=== PATIENT | male | born 1985 | race Caucasian/White ===

== ENCOUNTER 2018-01-25 16:35 | Emergency (ER) | payer OTHER ==
[~2018-01-25] VITALS: Ht 177.8 cm; Wt 100.0 kg
[~2018-01-25 16:35] MED LIST: ANTI INFLAMMATORY; MOTR200T47
[2018-01-25 16:36] VITALS: BP 138/73; PULSE 78; RESP 18; TEMP 98.2; O2SAT 100
--- NOTE | 2018-01-25 16:44 | PD ---
HPI Chief Complaint: Injury Time Seen by Provider: 16:44 Travel History International Travel<30 days: No Contact w/Intl Traveler<30days: No Traveled to known affect area: No History of Present Illness HPI 32-year-old male with no significant medical history presents emergency department for evaluation of right ankle pain since yesterday. Patient states he tripped down some stairs. He rolled his right ankle. He has been ambulatory since but states the pain is always there, moderate severity, exacerbated with ambulation. He has no other symptoms to report. [facility] Past Medical History Medical History: Denies Significant Hx Diminished Hearing: No Past Surgical History Eye Surgery: Yes (LEFT EYE CORNEAL TEAR) Other Surgery: Yes (HAND) Social History Alcohol Use: No Tobacco Use: Yes (USUALLY, BUT PT TRYING TO QUIT FOR LAST 7 DAYS) Substance Use: No Allergies-Medications (Allergen,Severity, Reaction): Coded Allergies: No Known Allergies (Verified Allergy, Mild, 01/25/18) Reported Meds & Prescriptions Reported Meds & Active Scripts Active No Active Prescriptions or Reported Medications Review of Systems Except as stated in HPI: all other systems reviewed are Neg Physical Exam Narrative GENERAL: Well-nourished, well-developed male patient in no acute distress SKIN: Focused skin assessment warm/dry. HEAD: Normocephalic. EYES: No scleral icterus. No injection or drainage. NECK: Supple, trachea midline. No JVD or lymphadenopathy. CARDIOVASCULAR: Regular rate and rhythm without murmurs, gallops, or rubs. RESPIRATORY: Breath sounds equal bilaterally. No accessory muscle use. EXTREMITY: The right ankle is minimally swollen and tender over the lateral aspect but the skin is intact and there is no ligamentous instability. There is no deformity. The foot and toes are warm and well-perfused. Sensation to pain and light touch is intact. Data Data Last Documented VS Vital Signs Date Time Temp Pulse Resp B/P (MAP) Pulse Ox O2 Delivery O2 Flow Rate FiO2 01/25/18 16:36 98.2 78 18 138/73 (94) 100 Orders Orders Ankle, Complete ([id number]) (01/25/18 ) Ed Discharge Order (01/25/18 17:12) MDM Medical Decision Making Medical Screen Exam Complete: Yes Emergency Medical Condition: Yes Medical Record Reviewed: Yes Differential Diagnosis Sprain versus fracture versus contusion versus dislocation Narrative Course 32-year-old male presents emergency department for evaluation of right ankle injury following a trip and fall downstairs. The ankle appears minimally swollen. X-ray imaging confirms no acute bony abnormality. Patient is counseled on care and agrees to follow-up with a primary care provider. He agrees to return immediately with any acute worsening symptoms. Diagnosis Primary Impression: Ankle sprain Qualified Codes: S93.401A - Sprain of unspecified ligament of right ankle, initial encounter Referrals: Primary Care Physician Patient Instructions: Ankle Sprain Exercises (GEN), General Instructions Additional Instructions: Ice and elevate to reduce pain Ghulam wrap for support Ibuprofen as directed on the package as needed for pain Return to ED with acute worsening of symptoms Med/Other Pt SpecificInfo: No Change to Meds Scripts No Active Prescriptions or Reported Meds Disposition: 01 DISCHARGE HOME Condition: Stable Kenzie Macias January 25, 2018 16:44
--- NOTE | 2018-01-25 17:10 | RADRPT ---
EXAM DATE/TIME: 01/25/2018 17:01 [facility] COMPARISON: No previous studies available for comparison. INDICATIONS : Pain post fall yesterday. MEDICAL HISTORY : Right clubfoot. SURGICAL HISTORY : Right clubfoot surgery. ENCOUNTER: Initial ACUITY: 2 days PAIN SCORE: 8/10 LOCATION: Right Ankle. FINDINGS: Three view exam was performed of the right ankle. The bony structures are in normal alignment. No e vidence of fracture, dislocation, or soft tissue swelling. The ankle mortise is intact. No radiopaq ue foreign bodies are seen. Bony mineralization is normal. CONCLUSION: No acute fracture or joint dislocation. Nikhil Raya MD on January 25, 2018 at 17:08 Board Certified Radiologist. This report was verified electronically.
== END 2018-01-25 17:36 | disposition home or self-care (01) ==
LOC: NEPK 16:35
DX: S93.401A Sprain of unspecified ligament of right ankle, initial encounter (principal); W10.9XXA Fall (on) (from) unspecified stairs and steps, initial encounter
CPT/HCPCS: 73610; 99283